=== PATIENT | male | born 1935 | race Caucasian/White ===

== ENCOUNTER 2017-04-29 10:06 | Observation (INO) ==
[2017-04-29 11:47] LABS: Basophils # 0.1 K/mcL (0.0-0.2); Basophils % 1.1 %; Eosinophils # 0.2 K/mcL (0.0-0.6); Eosinophils % 1.9 %; Hematocrit 40.1 % (37.5-50.1); Hemoglobin 13.3 g/dL (12.9-16.9); Immature Granulocytes % 0.3 % (0-4); Lymphocytes # 1.6 K/mcL (0.6-4.6); Lymphocytes % 16.3 %; Mean Corpuscular HGB Conc 33.2 g/dL (31.6-35.5); Mean Corpuscular Hemoglobin 30.9 pg (28.0-33.3); Mean Platelet Volume 9.9 fL (9.4-12.4); Monocytes # 0.9 K/mcL (0.0-1.3); Monocytes % 9.4 %; Neutrophils # 6.8 K/mcL (1.6-8.9); Platelet Count 267 K/mcL (140-400); Red Blood Count 4.31 M/mcL (4.19-5.50); Red Cell Distribution Width 14.5 % (11.5-14.5)
--- NOTE | 2017-04-29 11:55 | Emergency Department Note ---
Disposition Clinical Impression: Lightheaded, HARPREET (acute kidney injury), Exertional dyspnea Disposition: Admitted As Inpatient Condition: Fair Time of Disposition: 14:27 General Adult HPI - General Chief complaint: ED Shortness of Breath/Dyspnea Stated complaint: OBDULIA Time Seen by Provider: 04/29/17 11:02 Source: patient Mode of arrival: ambulatory Limitations: no limitations Nursing Notes Reviewed: Yes Vital Signs Reviewed: Yes - History of Present Illness HPI Narrative: 81-year-old male presents to the ED complaining of generalized weakness and dizziness as well as difficulty in breathing. 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 He states that his dizziness and shortness of breath has been going on for some time for many months in many years. He says he was seen at [facility] about a month ago and asked for a head CT as well as a neck CT as he is complaining of neck pain when he turns his head to the left and right but they did not do one. He states they came here hoping to get a CT is that will allow him to answer all of his questions about him. 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 He states that he does have a little weakness on his left side because from his previous TIA and he is left handed. He only complains of shortness of breath he says on exertion and feels he just happened to gasp for air. He does not have any history of respiratory issues. He says he has had multiple stents placed in his heart. He is not complaining nausea, vomiting, fevers, headaches, blurry vision. He is complaining of neck pain. There is no chest pain or abdominal pain. He says he does have some numbness and tingling going down his left arm but no where else. Patient is on Coumadin but he is unsure as to why. He was on Eloquis. Pain Scale: 5 - Related Data Home Medications Medication Instructions Recorded Confirmed Amiodarone [Cordarone] 200 mg PO DAILY 04/29/17 04/29/17 Atorvastatin [Lipitor] 10 mg PO HS 04/29/17 04/29/17 Enalapril Maleate [Vasotec] 5 mg PO BID 04/29/17 04/29/17 Finasteride [Proscar] 5 mg PO DAILY 04/29/17 04/29/17 HYDROcodone/Acet 10/325 mg [[place] 1 tab PO Q6HR PRN 04/29/17 04/29/17 10-325 mg] Levothyroxine Sodium [Levoxyl] 150 mcg PO DAILY 04/29/17 04/29/17 Metoprolol [Lopressor] 50 mg PO BID 04/29/17 04/29/17 Pantoprazole Sodium 40 mg PO DAILY 04/29/17 04/29/17 Tamsulosin [Flomax] 0.4 mg PO DAILY 04/29/17 04/29/17 Warfarin Sodium [Coumadin] 6 mg PO DAILY 04/29/17 04/29/17 Allergies Allergy/AdvReac Type Severity Reaction Status Date / Time No Known Allergies Allergy Verified 04/29/17 10:18 Constitutional: Reports: as per HPI, weakness Eyes: Denies: eye pain, eye discharge, vision change ENT ED: Denies: ear pain, throat pain, dental pain, hearing loss, epistaxis, congestion, dysphagia Cardiovascular: Denies: chest pain, palpitations, dyspnea on exertion, edema, syncope Respiratory: Denies: cough, dyspnea, wheezes, hemoptysis, stridor Gastrointestinal: Denies: abdominal pain, nausea, vomiting, diarrhea, constipation, hematemesis, melena, hematochezia Genitourinary: Denies: urgency, dysuria, frequency, hematuria Musculoskeletal: Denies: back pain, neck pain, arthralgia, myalgia Integumentary: Denies: rash, abrasion, lesions Neurological: Reports: weakness, numbness, paresthesias, confusion, abnormal gait. Denies: headache, vertigo Psychiatric: Denies: anxiety, depression, suicidal thoughts, homicidal thoughts , auditory hallucinations, visual hallucinations Endocrine: Reports: as per HPI Hematological/Lymphatic: Denies: easy bleeding, easy bruising Allergic/Immunologic: Denies: facial swelling, urticaria Past Medical History - Past Medical History Medical history: Reports: DVT, hypertension, renal disease, TIA Psychiatric history: Reports: anxiety, depression - Social History Smoking Status: Never smoker Smokeless Tobacco Status: No Alcohol use: Reports: none Drug use: Reports: none Physical Exam - General Limitations: no limitations General appearance: alert, in no apparent distress - Head Head exam: atraumatic, normocephalic, normal inspection - Eye Eye exam: Present: normal appearance, PERRL, EOMI - ENT ENT exam: normal exam, normal oropharynx, mucous membranes moist - Neck Neck exam: Present: normal inspection, full ROM, trachea midline - Chest Chest inspection: Present: normal inspection, symmetric chest wall rise - Respiratory Respiratory exam: Present: normal lung sounds bilaterally. Absent: respiratory distress, wheezes, accessory muscle use - Cardiovascular Cardiovascular exam: Present: regular rate, normal rhythm, normal heart sounds - Abdominal Exam Abdominal exam: Present: soft, Non-Tender, normal bowel sounds. Absent: tenderness, distention, guarding, rebound, rigidity - Extremities Exam Extremities exam: Present: normal inspection, full ROM. Absent: tenderness, pedal edema - Back Exam Back exam: Present: normal inspection, full ROM. Absent: tenderness - Neurological Exam Neurological exam: Present: alert, oriented X3, CN II-XII intact, normal gait ( Slight etiology gait due to having left hip pain and having it replaced. Otherwise normal.). Absent: motor sensory deficit - Expanded Neurological Exam Patient oriented to: Present: person, place, time Speech: Present: fluid speech Cranial nerves: EOM function (II, III, IV, ): Normal, facial sensation (V): Normal, facial palsy (VII): Normal, spinal accessory function (XI): Normal, tongue deviation (XII): Normal Cerebellar function: normal gait, Romberg normal Motor strength - LUE: 5/5 Motor strength - RUE: 5/5 Motor strength - LLE: 5/5 Motor strength - RLE: 5/5 Upper motor neuron exam: vanessa neglect: Absent bilaterally, pronator drift: Absent bilaterally Sensory exam upper extremity: light touch: Normal Sensory exam lower extremity: light touch: Normal Coma Scale Eye Opening: Spontaneous Coma Scale Motor Response: Obeys Commands Coma Scale Verbal Response: Oriented Coma Scale Total: 15 - Psychiatric Psychiatric exam: Present: normal affect, normal mood - Skin Skin exam: Present: warm, dry, intact, normal color Course Course Narrative: 81-year-old male presented to the ED for generalized weakness and difficulty in breathing. These are all chronic issues but he has not been hospitalized for the lightheadedness and dizziness however. He states that previously he was diagnosed with a TIA and possible cerebellar stroke but is unsure when and how. Due to his lightheadedness we will get a CT of his head with noncontrast. We will also do basic laboratories including CBC, BMP, lactate, troponin. He does have an extensive cardiac history so we will do a chest x-ray as well as an EKG and check the troponin. We will give him aspirin at this time as he has not taken his daily dose yet. Plan as of now would be to admit the patient for further evaluation if nothing acute shows up. Patient is okay with this plan. - Reevaluation(s) Reevaluation #1: Patient reevaluated up to about his test results. He did show to have an elevated creatinine he states he does not know if he has any kidney injury. We will give him a 500 mL bolus of fluids and place an IV. I do not do any more fluids due to his cardiac history and about overloading his heart. His head CT showed possible lacunar infarct in his basal ganglia that is due to an old TIA/ stroke. Due to his lightheadedness and also his elevated creatinine and his cardiac pathology as well as the exertional dyspnea I think he needs to be admitted for further evaluation. The patient is okay with this plan. I paged the hospitalist and will speak to them about admission. - Consultations Consultation #1: Spoke with the hospitalist Dr. Michele who agreed to admit the patient. Explained to him my history and physical as well as well as our assessment and plan and to admit him for exertional dyspnea, acute kidney injury as well as lightheadedness. Vital Signs Temperature 98.1 F 04/29/17 10:08 Pulse Rate 71 04/29/17 10:08 Respiratory Rate 20 04/29/17 10:08 Blood Pressure 153/89 04/29/17 10:08 O2 Sat by Pulse Oximetry 99 04/29/17 10:08 Temperature 98.2 F 04/30/17 06:45 Pulse Rate 68 04/30/17 06:45 Respiratory Rate 16 04/30/17 06:45 Blood Pressure 118/74 04/30/17 06:45 O2 Sat by Pulse Oximetry 96 04/30/17 06:45 Oxygen Delivery Oxygen Delivery Room Air Medical Decision Making - MDM Narrative Medical decision making narrative: 81-year-old male presented to the ED complaining of lightheadedness and difficulty in breathing. He states his lightheadedness has been going on for some time and he thinks is due to a cerebellar stroke. He wants a CT done of his head. We did a CT which did show a lacunar infarct of his basal ganglia that was old and this could be due to causing some of his symptoms as he did have previous TIAs. We also did basic laboratories including CBC, BMP, lipase, troponin. He did show to have a possible prerenal acute kidney injury of having a creatinine of Over 2 and due to not having previous records or labs were unknown if this is common for him. Patient did not stay he knows of any kidney issues that he has. He also has been extensive cardiac history so we did a troponin and EKG those both came back negative and normal. There is no old EKG to compare with. He did have a paced rhythm which is normal based on him having in ACID. For his acute kidney injury we gave him a 500 mL bolus of normal saline as this could possibly due to dehydration but due to his cardiac issues would allow loaded to much fluids before an echocardiogram is done so we are going to only hold to the 500 mL bolus until he can go on maintenance fluids up on the floor. Chest x-ray was done which did not show any acute abnormalities.due to the patient's lightheadedness as well as cardiac history and the exertional dyspnea that needs further workup as well as his acute kidney injury I think admission would be in this patient's best interest. I spoke with him and he agrees that admission would be okay with him. I spoke with the hospitalist Dr. Michele who agreed to admit the patient as this possibly could be due to dehydration. Patient was admitted to the hospitalist service in stable condition and vital signs are stable at this time. Chest X-Ray 04/29/17 10:25 IMPRESSION: No acute cardiopulmonary process. D/ / 04/29/2017 11:00:34 Souleymane Lopez MD / abram Interpreting Provider: Souleymane Lopez MD Head CT 04/29/17 11:50 IMPRESSION: No acute intracranial abnormality. Findings compatible with age-related atrophy and mild likely chronic small vessel ischemic change along with old lacunar infarct in the right basal ganglia. D/ 04/29/2017 12:51:08 Feliciano Li MD / abram Interpreting Provider: Feliciano Li MD - Medical Records Medical records reviewed: Yes I reviewed the patient's medical records. - Lab Data Lab results reviewed: Yes I reviewed the patient's lab results. Result diagrams: 04/30/17 04:12 04/30/17 04:12 Lab Results 04/29/17 04/29/17 04/29/17 Range/Units 11:36 11:36 11:36 WBC 9.6 (4.3-11.1) K/mcL RBC 4.31 (4.19-5.50) M/mcL Hgb 13.3 (12.9-16.9) g/dL Hct 40.1 (37.5-50.1) % MCV 93.0 (83.0-100.0) fL MCH 30.9 (28.0-33.3) pg MCHC 33.2 (31.6-35.5) g/dL RDW 14.5 (11.5-14.5) % Plt Count 267 (140-400) K/mcL MPV 9.9 (9.4-12.4) fL Immature Gran % 0.3 (0-4) % Seg Neutrophils % 71.0 % Lymphocytes % 16.3 % Monocytes % 9.4 % Eosinophils % 1.9 % Basophils % 1.1 % Neutrophils # 6.8 (1.6-8.9) K/mcL Lymphocytes # 1.6 (0.6-4.6) K/mcL Monocytes # 0.9 (0.0-1.3) K/mcL Eosinophils # 0.2 (0.0-0.6) K/mcL Basophils # 0.1 (0.0-0.2) K/mcL PT (9.4-12.1) Seconds INR APTT (26.0-36.0) Seconds Sodium 142 (136-145) mEq/L Potassium 4.4 (3.5-4.5) mEq/L Chloride 107 (98-109) mEq/L Carbon Dioxide 26 (19-29) mEq/L BUN 35 H (8-26) mg/dL Creatinine 2.31 H (0.72-1.25) mg/dL Est GFR ( Amer) 33 L (> 60) Est GFR (Non-Af Amer) 27 L (> 60) BUN/Creatinine Ratio 15 (6-26) Glucose 108 H (70-99) mg/dL Calculated Osmolality 303 H (280-300) Lactic Acid 1.2 (0.5-2.2) mmol/L Calcium 10.0 (8.6-10.8) mg/dL Troponin I (0-0.03) ng/mL B-Natriuretic Peptide (0-100) pg/mL 04/29/17 04/29/17 04/29/17 Range/Units 11:36 11:36 12:13 WBC (4.3-11.1) K/mcL RBC (4.19-5.50) M/mcL Hgb (12.9-16.9) g/dL Hct (37.5-50.1) % MCV (83.0-100.0) fL MCH (28.0-33.3) pg MCHC (31.6-35.5) g/dL RDW (11.5-14.5) % Plt Count (140-400) K/mcL MPV (9.4-12.4) fL Immature Gran % (0-4) % Seg Neutrophils % % Lymphocytes % % Monocytes % % Eosinophils % % Basophils % % Neutrophils # (1.6-8.9) K/mcL Lymphocytes # (0.6-4.6) K/mcL Monocytes # (0.0-1.3) K/mcL Eosinophils # (0.0-0.6) K/mcL Basophils # (0.0-0.2) K/mcL PT 28.4 H (9.4-12.1) Seconds INR 2.6 APTT 40.1 H (26.0-36.0) Seconds Sodium (136-145) mEq/L Potassium (3.5-4.5) mEq/L Chloride (98-109) mEq/L Carbon Dioxide (19-29) mEq/L BUN (8-26) mg/dL Creatinine (0.72-1.25) mg/dL Est GFR ( Amer) (> 60) Est GFR (Non-Af Amer) (> 60) BUN/Creatinine Ratio (6-26) Glucose (70-99) mg/dL Calculated Osmolality (280-300) Lactic Acid (0.5-2.2) mmol/L Calcium (8.6-10.8) mg/dL Troponin I 0.02 (0-0.03) ng/mL B-Natriuretic Peptide 72 (0-100) pg/mL - Radiology Data Radiology results reviewed: Yes I reviewed the patient's radiology results. Chest X-Ray 04/29/17 10:25 IMPRESSION: No acute cardiopulmonary process. D/ 04/29/2017 11:00:34 Souleymane Lopez MD / abram Interpreting Provider: Souleymane Lopez MD Head CT 04/29/17 11:50 IMPRESSION: No acute intracranial abnormality. Findings compatible with age-related atrophy and mild likely chronic small vessel ischemic change along with old lacunar infarct in the right basal ganglia. D/ /29/2017 12:51:08 Feliciano Li MD / abram Interpreting Provider: Feliciano Li MD - EKG Data EKG #1 EKG attestation: Yes I reviewed and interpreted this EKG. EKG results narrative: EKG done at 1020 reviewed myself and attending shows electronically atrial paced rhythm at a rate of 71, MD interval 175, QRS 178, QTC 481 with a rightward axis. There is no signs of ST elevation, T-wave abnormalities. No signs of heart strain, hypertrophy. There is no old EKG to compare this time. This overall is a paced rhythm with no acute changes at this time. EKG shows normal: intervals, QRS complexes, ST-T waves Rate: normal Rhythm: other (Electronically atrial paced) [place]/QRS: right axis deviation When compared to previous EKG there are: previous EKG unavailable Interpretation: no acute changes Attestation Statement - Attestation Attestation: I examined this patient and my medical decision-making was reviewed with the Resident Physician, Dr. Rashid. I agree with the documented findings, disposition and treatment plan as described except to the extent set forth below. Pt is a 81 yo wm with hx CAD s/p remote CABG, hx per pt of a "cerebellar stroke ", and HTN, s/p AICD placement who presents to te ER with c/o chronic exertional dyspnea and "dizziness" with standing. Pt reports that he has had these symptoms for a year, and states that he usually goes to [place] for medical care, but drove here out of frustration because he feels strongly that "something is wrong and I think I have had a stroke". Pt arrives A&O x 4, awake and alert, GCS=15, and clear speech without focal neuro deficits. Pt with NIHSS= 0. Pt feels that he at some point has had a stroke and continues to have symptoms that do not improve. Pt on antivert, and has been prescribed this for at least 6 months for his "dizzziness". Pt insists he only has this dizziness when he changes positions from lying/seated to standing. Not assocd with head turning. No blurred vision. No N/V. Also c/o long standing SOB with any exertional, and reports becoming quite winded with any activity to the point that he has to stop. Pt sitting on cot in NAD, no resp distress, denies any current dizziness, able to ambulate in room without difficulty. VSS. I agree with pt's PE findings as documented. EKG without acute ischemia, no old EKG for comparison. Pt with neuro and cariac w/u, and his CT brain wnl, CXR wnl. Labs including BNP.trop wnl. INR is therapeutic. No recurrence of sxs while in the ED. Will admit the pt for further evaluation of his exertional dyspnea. Pt with elev Scr , but unclear of his baseline. Will give gentle IVF and ASA. D/W hospitalist who accepted pt for admission.
[2017-04-29 12:00] LABS: Potassium 4.4 mEq/L (3.5-4.5)
[2017-04-29] MEDS ORDERED: Aspirin 81 MG TAB.CHEW PO ONE (12:12)
[2017-04-29 12:25] LABS: INR 2.6; Prothrombin Time 28.4 Seconds (9.4-12.1)
[2017-04-29 12:28] LABS: Activated Partial Thrombo Time 40.1 Seconds (26.0-36.0)
[2017-04-29] MEDS ORDERED: 0.9 % Sodium Chloride 500 ML IVC ONE (14:00)
[2017-04-29] MEDS ORDERED: Naloxone 0.4 MG/ML INJ IVP PRN (16:33)
[2017-04-29] MEDS ORDERED: Ondansetron 4 MG/2 ML VIAL IVP PRN (16:33)
[2017-04-29] MEDS ORDERED: 0.9 % Sodium Chloride 1,000 ML IVC SCH (17:00)
--- NOTE | 2017-04-29 17:08 | Internal Med History&Physical ---
Date of Encounter: 04/29/17 Time of Encounter: 14:05 Assessment and Plan (1) Lightheaded Current visit: Yes Status: Acute Of unclear etiology, as per patient he had a cerebellar stroke a few years ago, which could be contributing to his symptoms will obtain orthostatic vitals 2d echo, carotid dopplers, Vit B12, TSH if above work up negative, will consider MRI brain/head to rule out any cerebellar lesions fall precautions (2) HARPREET (acute kidney injury) Current visit: Yes Status: Acute as per records patient has underlying CKD however no records of patient's baseline renal function will hold SANJU inh at this time gentle IV fluid hydration avoid nephrotoxic agents at this time will closely monitor renal function (3) Shortness of breath Current visit: Yes Status: Acute Of unclear etiology no clinical signs consistent with CHF given cardiac history, will obtain 2D echo to evaluate LVEF and rule out wall motion deficit O2 supplementation as needed CXR negative for any cardiopulmonary process (4) Hypertension Current visit: Yes Status: Chronic Will hold SANJU inhib at this time given renal function added hydralazine 10mg IV q6h PRN SBP>160 continue home meds closely monitor BP Qualifiers: Hypertension type: essential hypertension Qualified Code(s): I10 - Essential (primary) hypertension (5) DVT (deep venous thrombosis) Current visit: Yes Status: Chronic continue anticoagulation with Coumadin monitor INR Qualifiers: DVT location: lower extremity Affected thrombotic vein of extremity: unspecified vein of extremity Chronicity: unspecified Laterality: unspecified laterality Qualified Code(s): I82.409 - Acute embolism and thrombosis of unspecified deep veins of unspecified lower extremity (6) Hypothyroidism Current visit: Yes Status: Chronic continue home medications Qualifiers: Hypothyroidism type: unspecified Qualified Code(s): E03.9 - Hypothyroidism , unspecified (7) DVT prophylaxis Current visit: Yes Status: Acute anticoagulated with Coumadin Internal Medicine - H&P: HPI Chief complaint: shortness of breath Admitted From: Home Plans for Post Hospital Care: Home History of present illness: Mr. Loza is a 81 year old male with PMH of CAD, s/p CABG, AICD, hypothyroidism, DVT on anticoagulation, htn, hld who presented to the ER for evaluation of worsening shortness of breath, lightheadedness, and dizziness. Patient states he has history of two CVA, last one being about a year ago and states he was told that it was a cerebellar stroke at the time and he has had dizziness for the last two years. He states he feels unsteady as he gets up and tries to walk but is fine at rest. He also reports of having worsening shortness of breath that has been worsening for the last few months. States shortness of breath has been worst as he lays flat and with exertion. Today he states he was frustrated with his dizziness and shortness of breath so he decided to drive to the ER. During my evaluation, he is resting in bed and denies any shortness of breath, dizziness, lightheadedness. He states anytime he tries to get up to walk, he feels unsteady and feels as if he is going to fall. Denies any headache, chest pain, sob, abd pain, n/v , fever, or chills at this time. I had a detailed discussion about patient's code status, patient wishes to be DNR/DNI. Past Med Surg Social Fam HX - Past Medical History Medical history: DVT, hypertension, renal disease, TIA Psychiatric history: anxiety, depression - Past Surgical History Surgical History: herniorrhaphy, orthopedic, other - Social History Smoking Status: Never smoker Smokeless Tobacco Status: Yes Alcohol use: none Drug use: none Internal Medicine - H&P: Meds Amiodarone [Cordarone] 200 mg PO DAILY 04/29/17 [History] Atorvastatin [Lipitor] 10 mg PO HS 04/29/17 [History] Enalapril Maleate [Vasotec] 5 mg PO BID 04/29/17 [History] Finasteride [Proscar] 5 mg PO DAILY 04/29/17 [History] HYDROcodone/Acet 10/325 mg [[place] 10-325 mg] 1 tab PO Q6HR PRN 04/29/17 [History ] Levothyroxine Sodium [Levoxyl] 150 mcg PO DAILY 04/29/17 [History] Metoprolol [Lopressor] 50 mg PO BID 04/29/17 [History] Pantoprazole Sodium 40 mg PO DAILY 04/29/17 [History] Tamsulosin [Flomax] 0.4 mg PO DAILY 04/29/17 [History] Warfarin Sodium [Coumadin] 6 mg PO DAILY 04/29/17 [History] 3 Allergy/AdvReac Type Severity Reaction Status Date / Time No Known Allergies Allergy Verified 04/29/17 10:18 All Systems PM: A 10-system review of systems was performed and is negative for pertinent findings except as documented above in the HPI. - Constitutional Constitutional: as per HPI - Constitutional Vitals: Temp Pulse Resp BP Pulse Ox 97.5 F L 71 14 154/75 100 04/29/17 15:41 04/29/17 15:41 04/29/17 15:41 04/29/17 15:41 04/29/17 15:41 General appearance: Present: cooperative, A&O X 3, pleasant, no acute distress, answers questions appropriately - Head Head exam: Present: atraumatic, normocephalic - Eye Eye exam: Present: normal appearance, conjuntiva pink, sclera anicteric - Neck Neck exam general surgery: Present: normal inspection. Absent: tenderness - Respiratory Respiratory exam: Present: CTAB. Absent: accessory muscle use, rales, rhonchi, wheezes - Cardiovascular Cardiovascular exam: Present: RRR, +S1, +S2. Absent: diastolic murmur, gallop, JVD, rubs, systolic murmur - GI/Abdominal GI/Abdominal exam: Present: normal bowel sounds, soft, no peritoneal signs. Absent: distended, tenderness - Extremities Exam Extremities exam: Present: warm, radial pulses palpable and symmetrical. Absent : calf tenderness - Neurological Exam Neurological exam: Present: alert, oriented X3 - Psychiatric Psychiatric exam: Present: normal affect, normal mood Internal Med - H&P Results - Labs CBC & Chem 7: 04/29/17 11:36 04/29/17 11:36
[2017-04-29] MEDS ORDERED: *HR* Warfarin 3 MG TABLET PO SCH (18:00)
[2017-04-29] MEDS ORDERED: Warfarin perPT PO PRN (18:00)
[2017-04-29 23:35] LABS: Calcium 9.4 mg/dL (8.6-10.8); Magnesium 2.2 mg/dL (1.6-2.6); Potassium 4.6 mEq/L (3.5-4.5)
[2017-04-30 04:37] LABS: INR 3.1; Prothrombin Time 34.3 Seconds (9.4-12.1)
[2017-04-30 04:43] LABS: Basophils # 0.1 K/mcL (0.0-0.2); Basophils % 1.2 %; Eosinophils # 0.3 K/mcL (0.0-0.6); Eosinophils % 5.1 %; Hematocrit 35.1 % (37.5-50.1); Hemoglobin 11.4 g/dL (12.9-16.9); Immature Granulocytes % 0.6 % (0-4); Immature Platelets 2.5 % (1.1-6.1); Lymphocytes # 1.6 K/mcL (0.6-4.6); Lymphocytes % 23.9 %; Mean Corpuscular HGB Conc 32.5 g/dL (31.6-35.5); Mean Corpuscular Hemoglobin 30.2 pg (28.0-33.3); Mean Corpuscular Volume 92.9 fL (83.0-100.0); Mean Platelet Volume 9.9 fL (9.4-12.4); Monocytes # 0.8 K/mcL (0.0-1.3); Monocytes % 12.1 %; Neutrophils # 3.7 K/mcL (1.6-8.9); Platelet Count 244 K/mcL (140-400); Red Blood Count 3.78 M/mcL (4.19-5.50); Red Cell Distribution Width 14.6 % (11.5-14.5); Segmented Neutrophils % 57.1 %
[2017-04-30 06:00] LABS: Magnesium 2.1 mg/dL (1.6-2.6); Potassium 4.1 mEq/L (3.5-4.5)
[2017-04-30 06:23] LABS: Thyroid Stimulating Hormone 0.069 mcIU/mL (0.350-4.840); Triiodothyronine (T3) Free 1.57 pg/mL (1.71-3.71)
--- NOTE | 2017-04-30 07:36 | Electrocardiograph Report ---
[place] EPS Test Date: 2017-04-29 Pat Name: Kannan Loza Department: 102 Room: [facility] Gender: M Electoral Officer: [facility] : 1935 Requested By: Aaron Edge Order Number: [id number] Reading MD: Martina Robb DO Measurements Intervals [place] Rate: 71 P: 32 VT: 175 QRS: 212 QRSD: 178 T: 173 QT: 459 QTc: 481 Interpretive Statements ELECTRONIC ATRIAL PACEMAKER MARKED RIGHT AXIS DEVIATION [QRS AXIS > 100] RIGHT BUNDLE BRANCH BLOCK [120+ ms QRS DURATION, UPRIGHT V1, 40+ ms S IN I/aVL/V4/V5/V6] INFERIOR MYOCARDIAL INFARCTION [40+ ms Q WAVE AND/OR ST/T ABNORMALITY IN II/aVF], PROBABLY OLD WARNING: DATA QUALITY MAY AFFECT INTERPRETATION Electronically Signed On 04-30-2017 7:34:56 EDT by Martina Robb DO
[2017-04-30] MEDS: *HR* Amiodarone 200 MG TABLET PO SCH (08:51)
[2017-04-30] MEDS: Finasteride 5 MG TABLET PO SCH (08:51)
[2017-04-30 09:07] LABS: Hemoglobin A1C 5.4 %
[2017-04-30] MEDS ORDERED: ALPRAZolam 0.25 MG TABLET PO ONE (10:37)
--- NOTE | 2017-04-30 10:48 | Carotid Imaging Report ---
Carotid Duplex Patient Name:Kannan Loza Order Number:[id number] Procedure Date:04/29/2017 Date:8Age:81 yrs Gender:Male Lt BP:154 / 75 mmHg Rt.BP:154 / 87 mmHgHeart Rate: Location:[facility] Room #: [facility] Ripening Room Attendant:Analy Diaz SANJUANA Referring MD:Sherine Gomez MD Reading MD:Inocente Gonzales MD , FACS Primary Indications:r/o carotid stenosis Risk Factors Yes/No Hypertension Yes Hypercholesterolemia Yes Hx of CAD/PTCA Yes Hx of TIA Yes Hx of CVA Yes Impressions: Findings: Right carotid system is essentially normal. Findings: Left distal ICA has a moderate, 40-59% stenosis. Recommendations: After imaging the patient returned to their room. Findings Carotid Duplex: Right: There is nonstenotic plaque in the right proximal common carotid artery with a PSV of 68 cm/s and a EDV of 8 cm/s. The right mid common carotid artery has a PSV of 63 cm/s and a EDV of 13 cm/s. There is nonstenotic plaque in the right distal common carotid artery with a PSV of 61 cm/s and a EDV of 15 cm/s. The right bifurcation has a PSV of 57 cm/s and a EDV of 10 cm/s. The right proximal internal carotid artery has a PSV of 72 cm/s and a EDV of 26 cm/s. The right mid internal carotid artery has a PSV of 99 cm/s and a EDV of 32 cm/s. The right distal internal carotid artery has a PSV of 66 cm/s and a EDV of 20 cm/s. The right eca has a PSV of 64 cm/s. The right vertebral artery has a PSV of 57 cm/s and a EDV of 14 cm/s. Left: There is nonstenotic plaque in the left proximal common carotid artery with a PSV of 98 cm/s and a EDV of 23 cm/s. There is nonstenotic plaque in the left mid common carotid artery with a PSV of 80 cm/s and a EDV of 21 cm/s. There is nonstenotic plaque in the left distal common carotid artery with a PSV of 77 cm/s and a EDV of 20 cm/s. There is nonstenotic plaque in the left bifurcation with a PSV of 85 cm/s and a EDV of 24 cm/s. The left proximal internal carotid artery has a PSV of 101 cm/s and a EDV of 37 cm/s. The left mid internal carotid artery has a PSV of 110 cm/s and a EDV of 37 cm/s. There is 40-59% stenosis in the left distal internal carotid artery with a PSV of 124 cm/s and a EDV of 35 cm/s. The left eca has a PSV of 72 cm/s and a EDV of 11 cm/s. The left vertebral artery has a PSV of 44 cm/s and a EDV of 14 cm/s. Prior Study: No prior study available for comparison. Carotid Results Right PSV EDV Assessment Proximal CCA 68 8 Non Stenotic Plaque Mid CCA 63 13 Normal Distal CCA 61 15 Non Stenotic Plaque Bifurcation 57 10 Normal Proximal ICA 72 26 Normal Mid ICA 99 32 Normal Distal ICA 66 20 Normal ECA 64 0 Normal Vertebral Artery 57 14 Normal Left PSV EDV Assessment Proximal CCA 98 23 Non Stenotic Plaque Mid CCA 80 21 Non Stenotic Plaque Distal CCA 77 20 Non Stenotic Plaque Bifurcation 85 24 Non Stenotic Plaque Proximal ICA 101 37 Normal Mid ICA 110 37 Normal Distal ICA 124 35 40-59% stenosis ECA 72 11 Normal Vertebral Artery 44 14 Normal Ratio's Right ICA/CCA Ratio: 1.57 ICA/CCA Values: 99/63 Left ICA/CCA Ratio: 1.38 ICA/CCA Values: 110/80 Updated by Inocnete Gonzales MD, FACS on 04/30/2017 10:44:03 AM Inocente Gonzales MD electronically signed on 04/30/2017 10:44:20 AM with status of Final
--- NOTE | 2017-04-30 10:54 | Internal Med Progress Note ---
Date of Encounter: 04/30/17 Time of Encounter: 10:52 - Assessment and plan (1) Lightheaded Current Visit: Yes Status: Acute Assessment and plan: Of unclear etiology 2D echo: LVEF 55% with mild left ventricular diastolic dysfunction, mild to moderate concentric left ventricular hypertrophy, mildly dilated left atrium Carotid doppler: b/l nonstenotic plaque Given wide ataxic gait and persistent unsteadiness, neurology evaluation has been called. 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 will maintain fall precautions (2) HARPREET (acute kidney injury) Current Visit: Yes Status: Acute Assessment and plan: Renal function improving As per patient's records from his PCP his last creatinine in February 2017 was 1.9 will d/c IV fluids and avoid nephrotoxic agents closely monitor renal function (3) Shortness of breath Current Visit: Yes Status: Acute Assessment and plan: of unclear etiology 2D echo reports mild LV diastolic dysfunction but no clinical signs of CHF decompensation I am concerned that patient may have underlying anxiety contributing to his current symptoms He is saturating well on room air and lungs are clear to auscultation. will continue to closely monitor (4) Hypertension Current Visit: Yes Status: Chronic Assessment and plan: BP within acceptable range continue to hold [id number] Hydralazine 10mg IV q6h prn SBP>160 will closely monitor BP Qualifiers: Hypertension type: essential hypertension Qualified Code(s): I10 - Essential (primary) hypertension (5) DVT (deep venous thrombosis) Current Visit: Yes Status: Chronic Assessment and plan: continue coumadin pharmacy to dose coumadin monitor INR Qualifiers: DVT location: lower extremity Affected thrombotic vein of extremity: unspecified vein of extremity Chronicity: unspecified Laterality: unspecified laterality Qualified Code(s): I82.409 - Acute embolism and thrombosis of unspecified deep veins of unspecified lower extremity (6) Hypothyroidism Current Visit: Yes Status: Chronic Assessment and plan: thyroid panel studies consistent with Hyperthyroidism Given patient's current dose of levothyroxine (150mcg qdaily), 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 Resting in bed and reports of feeling better compared to previous day however continues to complain of unsteadiness/ lightheadedness with ambulation. Pt is noted to have wide ataxic gait upon further evaluation. Unable to obtain a MRI brain due to AICD and metal in spine s/p surgery. Pt denies any sob at this time. - Constitutional Vitals: Temp Pulse Resp BP Pulse Ox 97.7 F 69 18 131/75 97 04/30/17 10:16 04/30/17 10:16 04/30/17 10:16 04/30/17 10:16 04/30/17 10:16 General appearance: Present: cooperative, A&O X 3, pleasant, no acute distress, answers questions appropriately - Head Head exam: Present: atraumatic, normocephalic - Eye Eye exam: Present: conjuntiva pink, sclera anicteric - Respiratory Respiratory exam: Present: CTAB. Absent: accessory muscle use, chest wall tenderness, respiratory distress, wheezes, tachypnea - Cardiovascular Cardiovascular exam: Present: clicks, RRR, +S1, +S2. Absent: bradycardia, JVD, systolic murmur, tachycardia - GI/Abdominal GI/Abdominal exam: Present: normal bowel sounds, soft, no peritoneal signs. Absent: distended, tenderness - Extremities Exam Extremities exam: Present: full ROM, warm, radial pulses palpable and symmetrical. Absent: calf tenderness, pedal edema - Neurological Exam Neurological exam: Present: alert, oriented X3 - Psychiatric Psychiatric exam: Present: normal affect, normal mood Internal Medicine: Result - Labs CBC & Chem 7: 04/30/17 04:12 04/30/17 04:12 Labs: Short CBC 04/30/17 Range/Units 04:12 WBC 6.5 (4.3-11.1) K/mcL Hgb 11.4 L D (12.9-16.9) g/dL Hct 35.1 L (37.5-50.1) % Plt Count 244 (140-400) K/mcL Neutrophils # 3.7 (1.6-8.9) K/mcL BMP 04/29/17 04/30/17 23:10 04:12 Sodium 144 142 Potassium 4.6 H 4.1 Chloride 112 H 112 H Carbon Dioxide 26 23 BUN 33 H 34 H Creatinine 2.19 H 2.08 H Glucose 105 H 109 H Calcium 9.4 9.0 - ABG Interpretation ABG results: PT/INR, D-dimer PT 34.3 Seconds (9.4-12.1) H 04/30/17 04:12 Consult Discharge Plan - Plan Referrals: NONE,PCP [Primary Care Provider] -
[2017-04-30] MEDS: *HR* HYDROcodone/Acet 10/325 mg TABLET PO PRN ×2 (14:08→22:49)
--- NOTE | 2017-04-30 17:15 | Neurology - Consult Note ---
Date of Encounter: 04/30/17 Time of Encounter: 17:10 Assessment and Plan (1) Lightheaded Current Visit: Yes Status: Acute Non-specific dizziness with major component of disequilibrium when walking with spastic unsteady gait. The symptoms are most prominent when standing up and walk , also has some weakness but muscle strength testing reviewed no weakness but spasticity noted in both lower extremities. No symptoms or signs of ALS, no muscle fasciculations, no tongue atrophy and i seen on signs of ALS. No typical features of Parkinson disease. The gait difficulty can be complicated by previous cerebellar infarct, knee surgery and hip replacement. Jan obtain carotid artery doppler study. Will check CT of C and T spine to look for spinal cord pathology or spinal canal stenosis. He can not get MRI scanning. Myelogram may be needed to rule out spinal cord compression but this is invasive and he is also on anticoagulation which requires continuous treatment History of Present Illness Chief complaint: weakness, difficulty walking and disequillibrium HPI: Mr. Loza is a 81 year old male with PMH significant for history of cerebellar infarct, bilateral knee surgery, right hip placement, Afib on anticoagulation, s/p pacemaker placement who presented to ER with increasing difficulty walking, disequilibrium, dizziness. This is a chronic but progressively worsening problem. It has been getting worse since the last 6 months. He denies any problems when in sitting or horizontal position but once getting up he feels dizziness, lightheaded and a feeling of disequilibrium. He has been a cane to walk and if not he lorenzo fall. Reports some pain when he tries to turn his head to the side. At times when he raises his head up he passes out. Denies urinary incontinence, urgency or frequency. Has history of small cerebellar infarct. Has Afib and is on warfarin. CT of head showed acute intracranial abnormality. Past Med Surg Social Fam HX - Past Medical History Medical history: DVT, hypertension, renal disease, TIA Psychiatric history: anxiety, depression - Past Surgical History Surgical History: herniorrhaphy, orthopedic, other - Social History Smoking Status: Never smoker Smokeless Tobacco Status: No Alcohol use: none Drug use: none - Family History Brother Living Status: Hx Family Cardiac Disorders: Yes ([place]) Medications and Allergies Amiodarone [Cordarone] 200 mg PO DAILY 04/29/17 [History] Atorvastatin [Lipitor] 10 mg PO HS 04/29/17 [History] Enalapril Maleate [Vasotec] 5 mg PO BID 04/29/17 [History] Finasteride [Proscar] 5 mg PO DAILY 04/29/17 [History] HYDROcodone/Acet 10/325 mg [[place] 10-325 mg] 1 tab PO Q6HR PRN 04/29/17 [History ] Levothyroxine Sodium [Levoxyl] 150 mcg PO DAILY 04/29/17 [History] Metoprolol [Lopressor] 50 mg PO BID 04/29/17 [History] Pantoprazole Sodium 40 mg PO DAILY 04/29/17 [History] Tamsulosin [Flomax] 0.4 mg PO DAILY 04/29/17 [History] Warfarin Sodium [Coumadin] 6 mg PO DAILY 04/29/17 [History] 3 Allergy/AdvReac Type Severity Reaction Status Date / Time No Known Allergies Allergy Verified 04/29/17 10:18 All Systems: A 10-system review of systems was performed and is negative for pertinent findings except as documented above in the HPI. Physical Examination - Vital Signs Vital Signs: Initial Vital Signs Temp Pulse Resp BP Pulse Ox 98.1 F 71 20 153/89 99 04/29/17 10:08 04/29/17 10:08 04/29/17 10:08 04/29/17 10:08 04/29/17 10:08 - Constitutional General appearance: comfortable - Neurologic Sensorimotor examination: other (Grossly intact) Motor examination - right side: 5/5: deltoids, biceps, triceps, wrist flexion, wrist extension, external auditor, hip flexors, tibialis Anterior, quadriceps, toe extension (EHL), plantarflexion Motor examination - left side: 5/5: deltoids, biceps, triceps, wrist flexion, wrist extension, hip flexors, external auditor, quadriceps, tibialis Anterior, toe extension (EHL), plantarflexion Detailed sensory examination: other (grossly intact) Reflexes: Biceps: 2+, Triceps: 2+, Brachioradialis: 2+, Patella: 2+, Achilles: 2 + Mental Status Examination: awake, alert, oriented to person, oriented to place, oriented to time, follows commands appropriately, answers questions appropriately, no agnosia, no aphasia, no aproxia Cranial nerve examination: PERRL, EOMI, visual chau intact, corneal reflexes brisk symmetrically, sensory to face intact, mastication intact, no facial asymmetry is present, no dysarthria, hearing is intact symmetrically, soft palate elevates bilaterally upon phonation, gag reflex intact, flexes SCM and trapezius muscles symmetrically with full power, tongue protrudes midline ( Specifically i saw no evidence of tongue atrophy), no atrophy or facial fasiculations present Ataxia: truncal ataxia (with spastic gait noted) Results - Laboratory Findings CBC and BMP: 04/30/17 04:12 04/30/17 04:12 Abnormal lab findings: Abnormal lab results RBC 3.78 M/mcL (4.19-5.50) L 04/30/17 04:12 Hgb 11.4 g/dL (12.9-16.9) L D 04/30/17 04:12 Hct 35.1 % (37.5-50.1) L 04/30/17 04:12 RDW 14.6 % (11.5-14.5) H 04/30/17 04:12 PT 34.3 Seconds (9.4-12.1) H 04/30/17 04:12 APTT 40.1 Seconds (26.0-36.0) H 04/29/17 12:13 Chloride 112 mEq/L (98-109) H 04/30/17 04:12 BUN 34 mg/dL (8-26) H 04/30/17 04:12 Creatinine 2.08 mg/dL (0.72-1.25) H 04/30/17 04:12 Est GFR ( Amer) 38 (> 60) L 04/30/17 04:12 Est GFR (Non-Af Amer) 31 (> 60) L 04/30/17 04:12 Glucose 109 mg/dL (70-99) H 04/30/17 04:12 Calculated Osmolality 302 (280-300) H 04/30/17 04:12 Triglycerides 171 mg/dL (< 150) H 04/30/17 04:12 VLDL Cholesterol, Calc 34 mg/dL (< 31) H 04/30/17 04:12 HDL Cholesterol 26 mg/dL (40-59) L 04/30/17 04:12 Cholesterol/HDL Ratio 6.0 (0-4.9) H 04/30/17 04:12 TSH 0.069 mcIU/mL (0.350-4.840) L 04/30/17 04:12 Free T4 1.52 ng/dl (0.70-1.48) H 04/30/17 04:12 Free T3 1.57 pg/mL (1.71-3.71) L 04/30/17 04:12 Consult Discharge Plan - Plan Referrals: NONE,PCP [Primary Care Provider] -
[2017-04-30] MEDS ORDERED: *HR* Warfarin 3 MG TABLET PO ONE (18:00)
[2017-04-30] MEDS ORDERED: GuaiFENesin Liq 200 MG/10 ML UDC PO PRN (18:34)
[2017-05-01 04:47] LABS: Basophils # 0.1 K/mcL (0.0-0.2); Eosinophils # 0.5 K/mcL (0.0-0.6); Eosinophils % 5.6 %; Immature Granulocytes % 0.2 % (0-4); Lymphocytes # 2.1 K/mcL (0.6-4.6); Lymphocytes % 26.1 %; Mean Corpuscular HGB Conc 32.5 g/dL (31.6-35.5); Mean Corpuscular Hemoglobin 30.2 pg (28.0-33.3); Mean Corpuscular Volume 92.8 fL (83.0-100.0); Mean Platelet Volume 10.5 fL (9.4-12.4); Monocytes # 0.9 K/mcL (0.0-1.3); Monocytes % 10.9 %; Neutrophils # 4.5 K/mcL (1.6-8.9); Platelet Count 218 K/mcL (140-400); Red Blood Count 3.88 M/mcL (4.19-5.50); Red Cell Distribution Width 14.3 % (11.5-14.5); Segmented Neutrophils % 56.2 %
[2017-05-01 04:49] LABS: Hemoglobin 11.7 g/dL (12.9-16.9)
[2017-05-01 04:57] LABS: INR 2.7; Prothrombin Time 29.4 Seconds (9.4-12.1)
[2017-05-01 05:02] LABS: Calcium 9.5 mg/dL (8.6-10.8); Magnesium 1.9 mg/dL (1.6-2.6); Potassium 4.2 mEq/L (3.5-4.5)
[2017-05-01 07:56] VITALS: BP 133/76
[2017-05-01] MEDS: *HR* Amiodarone 200 MG TABLET PO SCH (09:34)
[2017-05-01] MEDS: Finasteride 5 MG TABLET PO SCH (09:34)
--- NOTE | 2017-05-01 11:39 | Discharge Summary ---
Date of Encounter: 05/01/17 Time of Encounter: 11:35 - Discharge Diagnosis (1) Lightheaded Priority: Primary Status: Acute (2) HARPREET (acute kidney injury) Priority: Secondary Status: Resolved Comments: renal function back to baseline (3) Shortness of breath Priority: Secondary Status: Resolved (4) Hypertension Priority: Secondary Status: Chronic Qualifiers: Hypertension type: essential hypertension Qualified Code(s): I10 - Essential (primary) hypertension (5) DVT (deep venous thrombosis) Priority: Secondary Status: Chronic Qualifiers: DVT location: lower extremity Affected thrombotic vein of extremity: unspecified vein of extremity Chronicity: unspecified Laterality: unspecified laterality Qualified Code(s): I82.409 - Acute embolism and thrombosis of unspecified deep veins of unspecified lower extremity (6) Hypothyroidism Priority: Secondary Status: Chronic Qualifiers: Hypothyroidism type: unspecified Qualified Code(s): E03.9 - Hypothyroidism , unspecified (7) DVT prophylaxis Priority: Secondary Status: Acute - Discharge Medications Home Medications: Amiodarone [Cordarone] 200 mg PO DAILY 04/29/17 [History] Atorvastatin [Lipitor] 10 mg PO HS 04/29/17 [History] Enalapril Maleate [Vasotec] 5 mg PO BID 04/29/17 [History] Finasteride [Proscar] 5 mg PO DAILY 04/29/17 [History] HYDROcodone/Acet 10/325 mg [Arion 10-325 mg] 1 tab PO Q6HR PRN 04/29/17 [History ] Metoprolol [Lopressor] 50 mg PO BID 04/29/17 [History] Pantoprazole Sodium 40 mg PO DAILY 04/29/17 [History] Tamsulosin [Flomax] 0.4 mg PO DAILY 04/29/17 [History] Warfarin Sodium [Coumadin] 6 mg PO DAILY 04/29/17 [History] Allergies/Adverse Reactions: 3 Allergy/AdvReac Type Severity Reaction Status Date / Time No Known Allergies Allergy Verified 04/29/17 10:18 Procedures/tests Complete & Pending: Procedures Performed prior 72 hours Category Date Time Status CT cervical spine wo con [CT] Routine Cat Scan 04/30/17 19:[address] thoracic spine wo con [CT] Routine Cat Scan 04/30/17 19:30 Completed ECG 12 lead ECG [ECG] Routine Y 04/29/17 23:08 Completed EV carotid duplex imaging BI Stat Y 04/29/17 16:43 Completed EV echocardiogram Stat Y 04/29/17 16:40 Completed Date of admission: 04/29/17 14:23 Primary care physician: PCP NONE Consults: 04/30/17 09:58 Consult to Neurology [CONS] Routine Consulting Provider: [facility] Reason for Consult: abnormal gait, unsteadiness, lightheadedness Call Completed: Yes Discharging clinician: Sherine Gomez Anticipated date of discharge: 05/01/17 - Patient Status Disposition: Home, Self-Care Condition: Good Functional capacity at discharge: uses cane/walker Overall status at discharge: patient is back to baseline - Ambulatory Orders Ambulatory Orders: Thyroid Stimulating Hormone [CHEM] Time Frame: 1 Week, Facility: [facility], Location: Lab Thyroxine (T4) Free [CHEM] Time Frame: 1 Week, Facility: [facility], Location: Lab Triiodothyronine (T3) Free [CHEM] Time Frame: 1 Day, Facility: [facility], Location: Lab - Discharge Instructions Follow Up With: NONE,PCP [Primary Care Provider] - Additional Instructions: Please follow up with your primary care physician, neurology, and your spinal surgery within one week after your discharge from the hospital. Please continue to hold your home dose of Levothyroxine until your follow up with your primary care physician. Please obtain the prescribed lab work prior to your follow up appointment with your primary care physician. Please resume all your other home medications prescribed by your primary care physician. - Diet and Activity Activity: increase activity as tolerated Diet: low salt diet Hospital course: Mr. Loza is a 81 year old male with PMH of CAD, s/p CABG, AICD, hypothyroidism, DVT on anticoagulation, htn, hld who presented to the ER for evaluation of worsening shortness of breath, lightheadedness, and dizziness. He underwent cardiology and neurological work up for his lightheadedness and unsteady gait. As per neurology, patient is recommended to follow up with the spinal surgeon as his spinal surgery may be contributing to his symptoms.At this time patient is hemodynamically stable, denies any discomfort. 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 He is to obtain thyroid function tests as outpatient prior to follow up with his PCP. At this time he denies any sob. He will be discharged to home with follow up with PCP and neurology/spinal surgery. Pt demonstrates understanding of his diagnosis and agrees with the discharge care and plan. - Time Spent with Patient Total time spent providing and/or coordinating discharge services: Less than 30 minutes - Constitutional Vitals: Temp Pulse Resp BP Pulse Ox 98.0 F 70 15 133/76 96 05/01/17 07:56 05/01/17 07:56 05/01/17 07:56 05/01/17 07:56 05/01/17 07:56 General appearance: Present: cooperative, A&O X 3, pleasant, no acute distress, answers questions appropriately - Head Head exam: Present: atraumatic, normocephalic - Eye Eye exam: Present: conjuntiva pink, sclera anicteric - Respiratory Respiratory exam: Present: CTAB. Absent: accessory muscle use, rales, rhonchi, wheezes - Cardiovascular Cardiovascular exam: Present: RRR, +S1, +S2. Absent: diastolic murmur, gallop, rubs, systolic murmur - GI/Abdominal GI/Abdominal exam: Present: normal bowel sounds, soft, no peritoneal signs. Absent: distended, tenderness - Extremities Exam Extremities exam: Present: warm, radial pulses palpable and symmetrical. Absent : calf tenderness, cyanotic, pedal edema - Neurological Exam Neurological exam: Present: alert, oriented X3 - Psychiatric Psychiatric exam: Present: normal affect, normal mood
--- NOTE | 2017-05-01 13:05 | Neurology Progress Note ---
Date of Encounter: 05/01/17 Time of Encounter: 11:00 Assessment and Plan (1) Lightheaded Status: Acute Nonspecific and i saw no evidence of KETTLE WORKER pathology and this has been going on for few months and it is not associated with focal neurological deficits. has mild left ICA stenosis and this should be an asymptomatic finding. Annual follow up with carotid artery duplex. (2) Cervical disc disease with myelopathy Status: Acute Patient appears myelopathic, likely related to his history of cervical disc disease, he is already s/p cervical spine fusion, and CT of c-t spine showed no acute pathology. Patient is to follow up with primary orthpedic for proper follow up. No further testing or intervention recommended at present time. Subjective Principal diagnosis: dizziness and balance difficulty Interval history: Patient seen and examined. He still has some dizziness, nonspecific, without significant changes in his vital sign and no other neurological deficits, no nystagmus and the dizziness does not limit his activity. Completed CT of C and T spine and it turns out that he has cervical and lumbar surgery hardware noted. Had cervical spine surgery 2 years ago at [facility]SH. Lumbar spine surgery at another facility Objective - Constitutional Vitals: Temp Pulse Resp BP Pulse Ox 98.0 F 70 15 133/76 96 05/01/17 07:56 05/01/17 07:56 05/01/17 07:56 05/01/17 07:56 05/01/17 07:56 - Neurological Exam Sensorimotor examination: Present: other (Grossly intact) Motor examination - left side: 5/5: deltoids, biceps, triceps, wrist flexion, wrist extension, hip flexors, donkey engine firer/fireman, quadriceps, tibialis Anterior, toe extension (EHL), plantarflexion Sensation intact: Present: other (grossly intact) Mental Status Examination: Present: awake, alert, oriented to person, oriented to place, oriented to time, follows commands appropriately, answers questions appropriately, no agnosia, no aphasia, no aproxia Cranial nerve examination: Present: PERRL, EOMI, visual chau intact, corneal reflexes brisk symmetrically, sensory to face intact, mastication intact, no facial asymmetry is present, no dysarthria, hearing is intact symmetrically, soft palate elevates bilaterally upon phonation, gag reflex intact, flexes SCM and trapezius muscles symmetrically with full power, tongue protrudes midline ( Specifically i saw no evidence of tongue atrophy), no atrophy or facial fasiculations present Results - Laboratory Findings CBC and BMP: 05/01/17 04:08 05/01/17 04:08 Abnormal lab findings: Abnormal lab results RBC 3.88 M/mcL (4.19-5.50) L 05/01/17 04:08 Hgb 11.7 g/dL (12.9-16.9) L 05/01/17 04:08 Hct 36.0 % (37.5-50.1) L 05/01/17 04:08 PT 29.4 Seconds (9.4-12.1) H 05/01/17 04:08 APTT 40.1 Seconds (26.0-36.0) H 04/29/17 12:13 Chloride 110 mEq/L (98-109) H 05/01/17 04:08 BUN 32 mg/dL (8-26) H 05/01/17 04:08 Creatinine 1.78 mg/dL (0.72-1.25) H 05/01/17 04:08 Est GFR ( Amer) 45 (> 60) L 05/01/17 04:08 Est GFR (Non-Af Amer) 37 (> 60) L 05/01/17 04:08 POC Glucose 104 (58-89) H 04/30/17 16:20 Triglycerides 171 mg/dL (< 150) H 04/30/17 04:12 VLDL Cholesterol, Calc 34 mg/dL (< 31) H 04/30/17 04:12 HDL Cholesterol 26 mg/dL (40-59) L 04/30/17 04:12 Cholesterol/HDL Ratio 6.0 (0-4.9) H 04/30/17 04:12 TSH 0.069 mcIU/mL (0.350-4.840) L 04/30/17 04:12 Free T4 1.52 ng/dl (0.70-1.48) H 04/30/17 04:12 Free T3 1.57 pg/mL (1.71-3.71) L 04/30/17 04:12 Consult Discharge Plan - Plan Additional Instructions: Please follow up with your primary care physician, neurology, and your spinal surgery within one week after your discharge from the hospital. Please continue to hold your home dose of Levothyroxine until your follow up with your primary care physician. Please obtain the prescribed lab work prior to your follow up appointment with your primary care physician. Please resume all your other home medications prescribed by your primary care physician. Referrals: NONE,PCP [Primary Care Provider] -
[2017-05-01] MEDS ORDERED: *HR* Warfarin 3 MG TABLET PO ONE (18:00)
--- NOTE | 2017-05-04 20:40 | Electrocardiograph Report ---
[place] [id number] Test Date: 2017-04-29 Pat Name: Kannan Loza Department: 114 Room: [facility] [place] Gender: M Analysis Director: [id number] : 1935 Requested By: Sherine Gomez Order Number: [id number] Reading MD: Juan Mcnally MD Measurements Intervals [place] Rate: 71 P: 173 MA: 257 QRS: -28 QRSD: 188 T: 41 QT: 466 QTc: 489 Interpretive Statements ELECTRONIC ATRIAL PACEMAKER BORDERLINE LEFT AXIS DEVIATION RIGHT BUNDLE BRANCH BLOCK Electronically Signed On 05-04-2017 20:38:31 EDT by Juan Mcnally MD
== END 2017-05-01 12:34 | disposition home or self-care (01) ==
LOC: EMEROO 10:06 → 3ANU 10:06 → 3NENU 19:04
PROVIDERS: ADMIT Internal Medicine; ATTEND Internal Medicine